=== PATIENT | male | born 1975 | race Caucasian/White ===

== ENCOUNTER 2018-07-03 20:56 | Emergency (ER) | payer OTHER ==
[2018-07-03 21:32] LABS: PLATELET COUNT 287 10^3/uL (150-400)
[2018-07-03] MEDS ORDERED: IPRATROPIUM/ALBUTEROL 3 ML DEYVIAL ONE (22:16)
[2018-07-03] MEDS ORDERED: IPRATROPIUM/ALBUTEROL 3 ML DEYVIAL IH ONE (22:18)
--- NOTE | 2018-07-03 22:29 | EDPHY ---
H & P Stated Complaint: chest tightness, BLE swelling x 3 weeks Time Seen by Provider: 07/03/18 21:30 HPI/ROS: CHIEF COMPLAINT: Leg swelling HISTORY OF PRESENT ILLNESS: This is a 43-year-old male with a history of reactive airway disease who presents because of bilateral lower extremity foot and ankle swelling. This has been present for the past few weeks but he noticed that it was worse today. He has not had this problem before. He was recently in [place] where he used cocaine (2 days ago). He smokes marijuana regularly. He drinks beer daily. He has not had chest pain but he does note that he has had some "anxiety" in his chest on and off. He is not sure whether that this represents a rapid heartbeat or not. It is not been occurring this evening and is not present at the time of my interview. He denies chest pain. He states that his breathing has been somewhat worse recently. He is not able to use his Advair inhaler regularly because it is expensive. He has a rescue albuterol inhaler. No cough or fever. REVIEW OF SYSTEMS: A ten system review of systems was performed and is negative with the exception of the items mentioned in the HPI. Past medical history: Reactive airway disease Past surgical history: Surgery on right arm fracture at age 18 Family history: Mother is alive and well, father with history of prostate cancer. He has an uncle with diabetes. His grandfather of complications related to amyloidosis. Social history: He is here with his girlfriend and his best friend. He works in the marijuana industry in sales. He drinks beer daily. He uses cocaine on rare occasions, most recently 2 days ago. No IV drug use. He smokes marijuana daily. No tobacco use. General Appearance: Alert. Vital signs reviewed. Blood pressure 160/90. Eyes: Pupils equal and round, no conjunctival injection, no discharge. Anicteric. ENT, Mouth: Mucous membranes are moist, no oropharyngeal erythema or edema. Neck: No lymphadenopathy, supple. Respiratory: Breath sounds are distant. No wheezes. Cardiovascular: Regular rate and rhythm; no murmur, rub, or gallop. Gastrointestinal: Abdomen is obese, soft and nontender. Skin: Warm and dry, no rashes on exposed skin, normal color. Back: Nontender to palpation over the thoracolumbar spine. No CVAT. Extremities: Bilateral 2+ pitting edema snf up the leg towards the knee. No calf tenderness. Pulses: 2+ dorsalis pedis pulses bilaterally. Neurological: Alert and oriented. Moving all four extremities easily and equally. ARLET. EOMI. Facial expressions symmetric. Psychiatric: Normal affect. - Personal History Current Tetanus/Diphtheria Vaccine: Unsure - Medical/Surgical History Hx Asthma: No Hx Chronic Respiratory Disease: Yes Hx Diabetes: No Hx Cardiac Disease: No Hx Renal Disease: No Hx Cirrhosis: No Hx Alcoholism: No Hx HIV/AIDS: No Hx Splenectomy or Spleen Trauma: No Other PMH: CHRONIC SINUS PROBLEMS - Social History Smoking Status: Never smoked Constitutional: Initial Vital Signs Temperature (C) 36.9 C 07/03/18 21:05 Heart Rate 94 07/03/18 21:05 Respiratory Rate 20 07/03/18 21:05 Blood Pressure 160/90 H 07/03/18 21:05 O2 Sat (%) 95 07/03/18 21:05 O2 Delivery Mode Room Air Allergies/Adverse Reactions: Penicillins Allergy (Verified 03/24/13 15:23) Home Medications: Medication Instructions Recorded Albuterol [Proventil Inhaler] 2 puffs IH Q4 #1 mdi 03/24/13 Fluticasone/Salmeter 250/50Mcg 2 puffs IH BID #1 disk 03/24/13 [Advair] NO HOME MEDS 03/24/13 Medical Decision Making - Diagnostics EKG Interpretation: 12 lead EKG is interpreted in [place] by emergency department physician. It shows sinus rhythm with a rate of 84. No acute ischemic changes. ED Course/Re-evaluation: DuoNeb given. Repeat lung examination is improved with markedly better air exchange. I have encouraged him to use his albuterol and his Advair as prescribed. Chest x-ray without evidence of pulmonary edema. No infiltrate. There are signs of reactive airway disease. Initial troponin negative. The patient is not experiencing chest pain at the time of my evaluation and has not come to the department because of chest pain. CBC, chemistries reviewed. BNP normal. Troponin normal. I do not see evidence of CHF. I do not suspect DVT. There is nothing to suggest infection such as cellulitis. He is given a dose of Lasix 20 mg orally in the emergency department. I do not think that he needs further emergency department evaluation but I am strongly encouraging him to follow up with a primary care physician. I have provided him with a referral. He understands that a I a clear diagnosis has not been made and that lower extremity edema can result from many different entities. I think that he is motivated to follow through with this and arrange an appointment with a primary care physician. He has been hypertensive in the emergency department. He was informed of this and strongly encouraged to follow up with primary care provider and have his blood pressure rechecked. Differential Diagnosis: I considered a differential diagnosis of lower extremity edema includes but is not limited to heart failure, kidney disease, medications, liver disease, DVT, lymphangitis, cellulitis. - Data Points Laboratory Results: Laboratory Results 07/03/18 21:15 07/03/18 21:15 Medications Given: Discontinued Medications Albuterol/Ipratropium (Duoneb) 3 ml IH EDNOW ONE Stop: 07/03/18 22:19 Last Admin: 07/03/18 22:19 Dose: 3 ml Furosemide (Lasix) 20 mg PO EDNOW ONE Stop: 07/03/18 22:37 Last Admin: 07/03/18 22:44 Dose: 20 mg Point of Care Test Results: Chemistry 07/03/18 21:22 POC Troponin I 0.00 ng/mL ng/mL (0.00-0.08) Departure - Departure Disposition: Home, Routine, Self-Care Clinical Impression: Lower extremity edema Condition: Good Instructions: Leg Edema (ED) Additional Instructions: You received a dose of Lasix in the emergency department. This will make you urinate tonight. It might take some of the swelling out of your legs. Try to stay off your feet for the next few days. When you are off your feet you should be elevating them above the level of your heart. I am referring you to Dr. Temple. Call her office on Wednesday and asked to be seen sometime this coming week. Let the office staff know that you were referred by the emergency department and that she was cable television technician. They should schedule you for an appointment this week. Try to use your Advair daily as recommended. If you have any new or concerning symptoms such as chest pain or persistent shortness of breath--you should be re-evaluated. Referrals: NONE *PRIMARY CARE P,. [Primary Care Provider] - As per Instructions Radha Temple MD [Medical Doctor] - As per Instructions
[2018-07-03] MEDS ORDERED: FUROSEMIDE 20 MG TAB PO ONE (22:36)
[2018-07-03 22:37] VITALS: BP 142/91
--- NOTE | 2018-07-13 16:46 | CPEKG ---
Test Reason : cp Blood Pressure : / mmHG Vent. Rate : 084 BPM Atrial Rate : 083 BPM P-R Int : 138 ms QRS Dur : 091 ms QT Int : 359 ms P-R-T Axes : 071 012 037 degrees QTc Int : 425 ms Sinus rhythm Confirmed by Hever Bonilla ([id number]) on 07/13/2018 4:45:26 PM Referred By: Rosa Elena Cee Confirmed By:Hever Bonilla
== END 2018-07-03 22:49 | disposition home or self-care (01) ==
DX: R60.0 Localized edema (principal); J45.909 Unspecified asthma, uncomplicated; F12.20 Cannabis dependence, uncomplicated
CPT/HCPCS: 84484-ER